=== PATIENT | male | born 1945 | race Caucasian/White ===

== ENCOUNTER 2020-08-12 11:00 | Outpatient (RCR) | payer MEDICARE, BC, SELFPAY | END 2020-08-27 14:00 | disposition home or self-care (01) | LOC: PT.CARL 11:00 | PROVIDERS: Visit Provider Orthopaedic Surgery | DX: M25.552 Pain in left hip (principal); Z96.642 Presence of left artificial hip joint | CPT/HCPCS: 97110; 97112; 97116; 97163 ==

== ENCOUNTER 2023-10-27 08:14 | Outpatient (CLI) | payer MEDICARE, BC, SELFPAY ==
[2023-10-27 08:48] LABS: Blood Urea Nitrogen 16 mg/dl (9-20); Estimated Glomerular Filt Rate 82 ml/min (>60); GFR (African American) 99 ML/MIN (>60)
--- NOTE | 2023-10-27 09:20 | HMH.ITSTN ---
PT ATTEMPTED EXAM, BUT WAS CLAUSTERPHOBIC, MAY CALL BACK TO RESCHEDULE WHEN HE FEELS LIKE HE CAN DO TEST AGAIN
--- NOTE | 2023-10-29 10:34 | PC.NURSE ---
Spoke with the patient's and she stated that he refused to do the pulse ox.
== END 2023-10-27 23:59 | disposition home or self-care (01) ==
LOC: RAD 08:15
PROVIDERS: PCP Family Medicine; Visit Provider Specialist
DX: R51.9 Headache, unspecified (principal)
CPT/HCPCS: 36415; 82565; 84520